=== PATIENT | male | born 1945 | race Caucasian/White ===

== ENCOUNTER 2017-03-08 09:16 | Outpatient (CLI) | payer MEDICARE ==
[2017-03-08 11:15] LABS: Anion Gap 11 mmol/L (10-20); BUN (Urea Nitrogen) 14 mg/dL (8.4-25.7); Calc. Creatinine Clearance 0 mL/min (70-130); Calcium 9.8 mg/dL (7.8-10.44); Carbon Dioxide 29 mmol/L (23-31); Chloride 101 mmol/L (98-107); Estimated GFR-MDRD 60; Glucose 295 mg/dL (80-115); Potassium 4.8 mmol/L (3.5-5.1); Sodium 136 mmol/L (136-145)
[2017-03-08 11:16] LABS: PTT 34.3 SEC (22.9-36.1); Prothrombin Time 13.5 SEC (12.0-14.7)
[2017-03-08 11:33] LABS: Hemoglobin 15.8 g/dL (14.0-18.0); Mean Corpuscular HGB CONC 34.8 g/dL (32.0-36.0); Mean Corpuscular Hemoglobin 32.4 pg (27.0-31.0); Platelet Count 112 thou/uL (130-400); RBC Distribution Width 12.3 % (11.5-14.5); Red Blood Cell (RBC) Count 4.87 mill/uL (4.70-6.10); White Blood Cell (WBC) Count 6.4 thou/uL (4.8-10.8)
== END 2017-03-08 09:17 | disposition home or self-care (01) ==
LOC: LABBT 09:16
PROVIDERS: ATTEND Urology
DX: Z01.812 Encounter for preprocedural laboratory examination (principal); N21.0 Calculus in bladder
CPT/HCPCS: 80048; 85027; 85610; 85730

== ENCOUNTER 2017-03-14 09:19 | Day surgery (SDC) | payer MEDICARE ==
[2017-03-08 09:58] VITALS: BMI 36.0
[2017-03-14] MEDS ORDERED: cefTRIAXone\\ROCEPHIN 2 GM in Sodium Chloride 0.9% 100 ML IVPB SCH (12:30)
[2017-03-14] MEDS ORDERED: CEFTRIAXONE 2GM/50 ML BAG 2 GM in Premix Bag 1 BAG IVPB SCH (12:45)
[2017-03-14] MEDS ORDERED: Fentanyl 100 MCG/2 ML VIAL ONE (12:53)
--- NOTE | 2017-03-14 14:53 | OP ---
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 PROCEDURE PERFORMED: Cysto, laser of strictures and stones, evacuation of stone and placement of Fol ey. PATH SENT: Stone. ESTIMATED BLOOD LOSS: 50-75 mL. DRAINS PLACED: 22-Macanese with 20 mL in the balloon. FINDINGS: He had no evidence of urethral stricture disease. In the prostatic urethra, it was quite narrowed, just proximal to the verumontanum from a contracture/scar that went across the anterior wal l. This was opened along the midline and opened up nicely. He had an elevated bladder neck and some contracture of the bladder neck that was released at the 6 o'clock position. He had 2 stones adhere nt to the wall of the prostatic urethra kind of more on the right side anteriorly above the large rig ht median lobe. He had right ureteral orifices; really cannot see the left ureteral orifices well. The bladder did not have any tumors, foreign bodies, or stone present. OPERATIVE TECHNIQUE: After obtaining written and verbal consent from the patient after receiving IV antibiotics, he was taken to the operating suite. He was placed in the supine position on the [facility] ent table. PlexiPulses were placed on his lower extremities and turned on. He was given a general a nesthetic, oral obturator intubation, and placed in the dorsal lithotomy position, and sterilely prep ped and draped. Cystoscopy was performed with a 22-Macanese sheath. This was well lubricated and pass ed under direct vision through the male urethra into the level of the membranous urethra with the aid of a 30-degree lens and video camera and monitor. The scope would not pass through the prostatic ur ethra, because of a scar that was present just proximal to the verumontanum. A 500 micro Holmium las er was brought in and used to incise this just at the 12 o'clock position. This then allowed the sco pe to easily go in and through the prostatic urethra. We did note that there was elevation of the bl adder neck, also with some bladder neck contracture and this was incised with the laser at the 6 o'cl ock position. Also, there were some stones noted on the right anterior prostatic urethra. These wer e laser knocked off and into the bladder. We elliked these off and sent off the largest of them for stone analysis. The bladder is then examined with a 30- and 70-degree lens without any other finding s noted. There was some bleeding from some of the sites, and we went ahead and switched out to a gyr us. A 24-Macanese resectoscope sheath was passed with a 30-degree lens and a visual obturator into the bladder. We then brought in the gyrus with the prostate loop and a 30-degree lens in an Moore re sectoscope and used this to cauterize the bleeding areas on the inside of the prostatic urethra. Onc e this was completed, Paredes catheter was easily inserted and 20 mL placed in the balloon. It was graff d irrigated. It was clear to light pink. It was hooked up to a leg bag on his right thigh and no tr action. He was awakened, extubated, and taken by stretcher to the recovery room.
== END 2017-03-14 18:00 | disposition home or self-care (01) ==
LOC: SDC 09:19
PROVIDERS: ATTEND Urology
PROC: 0TFD8ZZ Fragmentation in Urethra, Via Natural or Artificial Opening Endoscopic (ICD-10-PCS; principal; 2017-03-14)
PROC: 0TCD8ZZ Extirpation of Matter from Urethra, Via Natural or Artificial Opening Endoscopic (ICD-10-PCS; 2017-03-14)
PROC: 0T7C8DZ Dilation of Bladder Neck with Intraluminal Device, Via Natural or Artificial Opening Endoscopic (ICD-10-PCS; 2017-03-14)
PROC: 0TBC8ZZ Excision of Bladder Neck, Via Natural or Artificial Opening Endoscopic (ICD-10-PCS; 2017-03-14)
DX: N21.1 Calculus in urethra (principal); N32.0 Bladder-neck obstruction; E78.5 Hyperlipidemia, unspecified; I25.10 Atherosclerotic heart disease of native coronary artery without angina pectoris; I10 Essential (primary) hypertension; E11.9 Type 2 diabetes mellitus without complications; N40.0 Benign prostatic hyperplasia without lower urinary tract symptoms; F17.290 Nicotine dependence, other tobacco product, uncomplicated; F41.9 Anxiety disorder, unspecified; Z79.82 Long term (current) use of aspirin; Z79.899 Other long term (current) drug therapy; Z88.8 Allergy status to other drugs, medicaments and biological substances; Z85.820 Personal history of malignant melanoma of skin; Z95.818 Presence of other cardiac implants and grafts; Z97.0 Presence of artificial eye; Z96.652 Presence of left artificial knee joint; Z90.5 Acquired absence of kidney; Z90.49 Acquired absence of other specified parts of digestive tract; Z98.890 Other specified postprocedural states; Z85.89 Personal history of malignant neoplasm of other organs and systems
CPT/HCPCS: 82365; 88300; J0131; J0696; J3010; J7050

== ENCOUNTER 2018-04-07 10:55 | Outpatient (CLI) | payer MEDICARE ==
[2018-04-07] MEDS ORDERED: ISOVUE-370 76%-LOCM 1 ML ONE (12:33)
--- NOTE | 2018-04-07 13:08 | CT ---
CT OF THE ABDOMEN AND PELVIS WITH AND WITHOUT IV CONTRAST: DATE: 04/07/2018. PROVIDED CLINICAL HISTORY: Gross hematuria. FINDINGS: Comparison is made with a study dated 05/31/2016. The visualized lung bases are free of significant opacity. Postoperative changes of the left nephrectomy are redemonstrated without abnormality in the left quinn l fossa. The spleen again appears enlarged with a focal subcapsular fluid collection that appears si milar to the prior study inferiorly. The right and left adrenal glands appear unremarkable. There is nonspecific stranding about the right kidney, similar to the prior study. Subcentimeter par enchymal hypodensity involving the mid portion of the right kidney is stable in appearance. Somewhat complex cystic structure involving the posterior aspect of the right kidney at the superior pole díaz s not appear significantly changed with respect to the prior examination. There is no evidence for u rinary tract calculi or hydronephrosis. The delayed images demonstrate no evidence for filling defec t involving the right renal collecting system, right ureter, or urinary bladder. Asymmetric enlargem ent of the right aspects of the prostate gland with asymmetric mass effect upon the urinary bladder b ase appears similar to the prior examination. There is no bowel dilatation, inflammatory fat stranding, free fluid, or lymph node enlargement appar ent. Vascular calcifications are seen. Postoperative changes involving the rectosigmoid junction ar e again noted. The osseous structures demonstrate no concerning osteoblastic or osteolytic lesions. IMPRESSION: An etiology for the patient's hematuria is not evident on this examination. Stable CT with respect t o 05/31/2016. POS: [facility]
== END 2018-04-07 10:56 | disposition home or self-care (01) ==
LOC: BICCT 10:55
PROVIDERS: ATTEND Urology
DX: R31.0 Gross hematuria (principal)
CPT/HCPCS: 74178; 82565; Q9966

== ENCOUNTER 2018-04-21 08:52 | Outpatient (CLI) | payer MEDICARE ==
--- NOTE | 2018-04-21 10:25 | CT ---
TWO VIEWS SINUSES WITHOUT CONTRAST: Comparison: None. History: Sinusitis with cough and congestion. Technique: Multiple contiguous axial images were obtained in a CT of the sinuses without contrast. Co yina reformats were performed. FINDINGS: The frontal, maxillary, ethmoid, and sphenoid sinuses are well aerated without opacification or mucos al thickening. The density of the bones surrounding the sinuses are normal without significant sclero tic change to suggest chronic sinus disease. There is calcification of the right orbit from prior right orbital injury. The calcification in the r ight lobe secondary to right globe injury. The left globe is unremarkable. The left lobar soft tissue s are unremarkable. The visualized intracranial structures are unremarkable. The bilateral maxillary osteomeatal units are patent. Minimal nasal deviation to the right is seen. IMPRESSION: No significant sinus disease. POS: [facility]
--- NOTE | 2018-04-21 10:29 | RAD ---
THREE VIEWS SINUSES: History: Chronic sinusitis for three weeks with sinus pressure. FINDINGS: Three views of the sinuses shows complete aeration of the frontal, maxillary, ethmoid and sphenoid si nuses. The density of the bones surrounding the sinuses are normal without significant sclerotic chen ge. IMPRESSION: No evidence of sinus opacification. POS: [facility]
--- NOTE | 2018-04-21 10:44 | RAD ---
TWO VIEWS CHEST: Comparison: 10-22-13 History: Cough and shortness of breath. Congestion. Chronic sinusitis. FINDINGS: Two views of the chest shows normal sized cardiomediastinal silhouette. A calcified granuloma project s over the left mid-thorax. There is no evidence of consolidation or pleural effusion. IMPRESSION: No evidence of acute cardiopulmonary disease. POS: [facility]
== END 2018-04-21 08:53 | disposition home or self-care (01) ==
LOC: BICCT 08:52
PROVIDERS: ATTEND Specialist
DX: J20.8 Acute bronchitis due to other specified organisms (principal); J32.0 Chronic maxillary sinusitis
CPT/HCPCS: 70220; 71046

== ENCOUNTER 2018-07-26 11:48 | Outpatient (CLI) | payer MEDICARE ==
--- NOTE | 2018-07-26 15:30 | RAD ---
CERVICAL SPINE RADIOGRAPHS 4 VIEWS: Date: 07/26/18 PROVIDED CLINICAL HISTORY: Cervical radiculopathy. FINDINGS: Cervical alignment appears normal. Vertebral body heights appear preserved. Disc space narrowing and end plate degenerative changes are noted at C5-6 and C6-7. No prevertebral soft tissue swelling appar ent. Visualized lung apices appear clear. The lower cervical spine is not optimally evaluated due to patient body habitus. IMPRESSION: Cervical degenerative change. In the setting of cervical radiculopathy, MRI may be useful for further evaluation. POS: [facility]
== END 2018-07-26 11:49 | disposition home or self-care (01) ==
LOC: BICRAD 11:48
PROVIDERS: ATTEND Specialist
DX: M47.22 Other spondylosis with radiculopathy, cervical region (principal)
CPT/HCPCS: 72040

== ENCOUNTER 2019-12-03 13:40 | Outpatient (CLI) | payer MEDICARE ==
[~2019-12-03 13:40] MED LIST: Magnevist 469MG/ML 20 ML VIAL ONE
--- NOTE | 2019-12-03 15:00 | MRI ---
MRI BRAIN AND INTERNAL AUDITORY CANALS WITH AND WITHOUT CONTRAST: Date: 12/03/2019 HISTORY: 74-year-old male with tinnitus TECHNIQUE: Multiplanar, multisequence MRI, both whole brain images and thin slices through the IACs, pre and pos t IV injection of gadolinium-based contrast agent. FINDINGS: There is no obstructive hydrocephalus. There is no midline shift or any other evidence of mass effect . There is no extra-axial fluid collection. There are mild chronic ischemic white matter changes due to microvascular atherosclerosis. There is otherwise no major intra-axial signal abnormality, abn ormal enhancement, mass, recent hemorrhage, or restricted diffusion. There is no abnormal enhancement, mass, or morphologic abnormality, involving the cerebellopontine an gles, 7th-8th nerve complexes, internal auditory canals, cochleae, vestibules, vestibular aqueducts, or semicircular canals. No signs of dural venous sinus thrombosis. There are bilateral mastoid effusions. 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 IMPRESSION: 1) mild chronic ischemic white matter changes. 2) bilateral mastoid effusions. 3) right globe prosthesis.
== END 2019-12-03 13:41 | disposition home or self-care (01) ==
LOC: BICMRI 13:40
PROVIDERS: ATTEND Specialist
DX: H93.19 Tinnitus, unspecified ear (principal); G93.89 Other specified disorders of brain; G93.6 Cerebral edema; Z98.890 Other specified postprocedural states
CPT/HCPCS: 70553; 82565; A9579

== ENCOUNTER 2019-12-04 07:35 | Outpatient (CLI) | payer MEDICARE, OTHER ==
[2019-12-04 18:02] LABS: Hemoglobin 15.6 g/dL (14.0-18.0); Mean Corpuscular HGB CONC 33.3 g/dL (32.0-36.0); Mean Corpuscular Hemoglobin 31.8 pg (27.0-31.0); Mean Corpuscular Volume 95.5 fL (78.0-98.0); Mean Platelet Volume 11.8 fL (7.4-10.4); Platelet Count 118 thou/uL (130-400); RBC Distribution Width 13.1 % (11.5-14.5); White Blood Cell (WBC) Count 7.2 thou/uL (4.8-10.8)
[2019-12-04 18:05] LABS: INR-International Normal Ratio 0.9; PTT 32.6 sec (22.9-36.1); Prothrombin Time 12.5 sec (12.0-14.7)
[2019-12-04 18:29] LABS: Bacteria/HPF None Seen HPF (None Seen); Bilirubin Negative (Negative); Blood, Urine Negative (Negative); Clarity Clear (Clear); Glucose, Urine (Dipstick) Normal (Negative); Ketone, Urine Negative (Negative); Leukocyte Negative Leu/uL (Negative); Nitrite Negative (Negative); Protein, Urine (Dipstick) Negative (Neg-Trace); RBC/HPF 0-3 HPF (0-3); Specific Gravity, Urine 1.004 (1.002-1.036); Squamous Epithelial None Seen HPF (0-3); Urobilinogen Normal mg/dL (Less than 2); WBC/HPF 0-3 HPF (0-3); pH, Urine 6.5 (5.0-9.0)
[2019-12-04 18:51] LABS: Anion Gap 15 mmol/L (10-20); BUN (Urea Nitrogen) 14 mg/dL (8.4-25.7); Calc. Creatinine Clearance 0 mL/min (70-130); Calcium 9.5 mg/dL (7.8-10.44); Carbon Dioxide 25 mmol/L (23-31); Chloride 103 mmol/L (98-107); Estimated GFR-MDRD 66; Glucose 98 mg/dL (83-110); Potassium 4.6 mmol/L (3.5-5.1); Sodium 138 mmol/L (136-145)
--- NOTE | 2019-12-05 07:14 | EKG ---
Test Reason : Blood Pressure : / mmHG Vent. Rate : 090 BPM Atrial Rate : 090 BPM P-R Int : 186 ms QRS Dur : 088 ms QT Int : 366 ms P-R-T Axes : 068 064 036 degrees QTc Int : 447 ms Normal sinus rhythm Cannot rule out Anterior infarct , age undetermined Poor anterior R wave progression Abnormal ECG No previous ECGs available Confirmed by DR. Ronan OTT ([id number]) on 12/05/2019 7:14:29 AM Referred By: IKER Confirmed By:DR. Ronan OTT
[2019-12-05 11:55] LABS: SARS-CoV-2 MS2 Positive; SARS-CoV-2 N Gene Negative; SARS-CoV-2 S Gene Negative; SARS-CoV-2 by NAA Not Detected (NotDetected); SARS-CoV-2 orf1ab Negative
== END 2019-12-04 07:36 | disposition home or self-care (01) ==
LOC: LABBT 07:35
PROVIDERS: ATTEND Urology
DX: Z01.818 Encounter for other preprocedural examination (principal); Z20.828 Contact with and (suspected) exposure to other viral communicable diseases; C64.2 Malignant neoplasm of left kidney, except renal pelvis; N40.1 Benign prostatic hyperplasia with lower urinary tract symptoms; N52.1 Erectile dysfunction due to diseases classified elsewhere; R35.0 Frequency of micturition; E11.43 Type 2 diabetes mellitus with diabetic autonomic (poly)neuropathy; R31.0 Gross hematuria
CPT/HCPCS: 80048; 81001; 85027; 85610; 85730; 87086; 93005; U0003; 87635; 93010

== ENCOUNTER 2019-12-07 07:53 | Day surgery (SDC) | payer MEDICARE ==
[2019-12-05 12:46] VITALS: BMI 34.9
[2019-12-07] MEDS ORDERED: B & O ONE (10:14)
[2019-12-07] MEDS ORDERED: PROPOFOL 200 MG/20 ML VIAL ONE (10:45)
[2019-12-07] MEDS ORDERED: HYDROcodone/Acetaminophen 5/325 mg Tablet ONE (11:49)
--- NOTE | 2019-12-07 12:55 | OP ---
DATE OF PROCEDURE: 12/07/2019 SERVICE: Urology. PREOPERATIVE DIAGNOSIS: Benign prostatic hypertrophy with obstruction. POSTOPERATIVE DIAGNOSIS: Benign prostatic hypertrophy with obstruction. PROCEDURE PERFORMED: UroLift with 8 implants. INDICATIONS FOR PROCEDURE: Mr. Red is a 74-year-old white male with a history of TURP many years ago by Dr. Jacobs. He had recurrent urinary complaints, and on cystoscopy, he was found to have significant lateral regrowth of nodules along with synechiae of the prostate. He is now coming in for UroLift after discussion of options, risks and benefits, and he has agreed to proceed forward. DESCRIPTION OF PROCEDURE: After identification of armband and verification of consent, the patient was brought back to the operating room where he underwent total intravenous anesthesia. He was then placed in dorsal lithotomy position and prepped and draped in the usual sterile fashion. After appropriate time-out, a 21-[place]ankan rigid cystoscope with visual obturator was passed through the urethra into the prostate. The prostate synechia was identified at the distal aspect of the prostate, connecting the two lateral lobes. This was broken by gently applying upward pressure on the synechia until it ripped. This allowed for the prostate nodules to be opened up nicely laterally. The scope was then passed down into the bladder, which appeared normal, consistent with outpatient cystoscopy. The visual obturator was then switched out for the UroLift implant device. The initial UroLift was placed on the dominant nodule in the patient's right base of the prostate. Lateral compression was achieved on to the middle of the nodule until it was well out of the way. The safety was released and the blue trigger fired to deploy the Nitinol needle. Tension was set along with the capsular tab with the kebede trigger. The UroLift was then advanced forward until the white line could be seen in the keyhole and the urethral end piece deployed using the blue back trigger. This resulted in nice compression of the dominant nodule at the right base of the prostate. Additional implant was placed at the left base of the prostate at the right and left apex of the prostate, a little bit more toward the midline. Additional implants were put on the right and left side of the mid aspect of the prostate, which were still bulging somewhat. At this point, there still appeared to be obstruction on the distal aspect of the prostate. After evaluation, we elected to put 2 more distal implants in more distal to where the original, thought to be distal implants were, which was actually more towards the mid aspect of the prostate. The patient does have a very long prostatic urethra, having a 74 mL prostate. Two additional implants were placed at the left and right apex, which resulted in complete opening of the prostatic channel. There was a moderate amount of bleeding seen at the end of the case due to the disruption of the synechiae between the 2 prostate lobes, but there did appear to be a nice anterior channel from the verumontanum all the way to the bladder neck. I did feel the patient has a high probability of being able to void better after this procedure. As such, the bladder was left full and the cystoscope removed. An 18-Sri [place]ankan Paredes catheter was placed with ease into the bladder with 20 mL of sterile water placed into the balloon. This was then affixed with a StatLock. The patient had a B and O suppository placed in the patient's rectum. He was taken out of positioning, awakened, taken back to Day Stay for recovery in stable condition. COMPLICATIONS: None. ESTIMATED BLOOD LOSS: Minimal. RETAINED TUBES AND DRAINS: An 18-S[place]ankan Paredes catheter with 20 mL of sterile water in the balloon. IMPLANTS USED: Eight. SPECIMENS: None. DISPOSITION: The patient will be monitored in PACU. He did have a moderate amount of bleeding. There is a good chance we will send him home with a catheter, but if the bleeding resolves and his urine looks relatively clear, he may be able to be discharged without a catheter. We will make this decision in Day Stay and then he will follow up with me on an outpatient basis. Job ID: [id number]
[2019-12-07] MEDS ORDERED: Labetalol HCl 100 MG/20 ML VIAL ONE (13:28)
[2019-12-07] MEDS ORDERED: Ramipril 5 MG CAP PO SCH (14:15)
== END 2019-12-07 15:23 | disposition home or self-care (01) ==
LOC: SDC 07:53
PROVIDERS: ATTEND Urology
PROC: 0T7D8DZ Dilation of Urethra with Intraluminal Device, Via Natural or Artificial Opening Endoscopic (ICD-10-PCS; principal; 2019-12-07)
DX: N40.1 Benign prostatic hyperplasia with lower urinary tract symptoms (principal); N13.8 Other obstructive and reflux uropathy; R35.0 Frequency of micturition; R35.1 Nocturia; R39.15 Urgency of urination; E11.43 Type 2 diabetes mellitus with diabetic autonomic (poly)neuropathy; N52.1 Erectile dysfunction due to diseases classified elsewhere; R31.0 Gross hematuria; E78.5 Hyperlipidemia, unspecified; I10 Essential (primary) hypertension; I25.10 Atherosclerotic heart disease of native coronary artery without angina pectoris; F41.9 Anxiety disorder, unspecified; M19.90 Unspecified osteoarthritis, unspecified site; M10.9 Gout, unspecified; F17.290 Nicotine dependence, other tobacco product, uncomplicated; Z79.82 Long term (current) use of aspirin; Z79.84 Long term (current) use of oral hypoglycemic drugs; Z79.899 Other long term (current) drug therapy; Z88.8 Allergy status to other drugs, medicaments and biological substances; Z90.5 Acquired absence of kidney; Z95.5 Presence of coronary angioplasty implant and graft; Z90.49 Acquired absence of other specified parts of digestive tract
CPT/HCPCS: C1889; C9740; J2704

== ENCOUNTER 2020-05-08 15:07 | Outpatient (CLI) | payer MEDICARE | END 2020-05-08 15:08 | disposition home or self-care (01) | LOC: CTENTCT 15:07 | PROVIDERS: ATTEND Otolaryngology Plastic Surgery within the Head & Neck | DX: J32.9 Chronic sinusitis, unspecified (principal) | CPT/HCPCS: 70486 ==

== ENCOUNTER 2021-03-09 15:49 | Outpatient (CLI) | payer MEDICARE | END 2021-03-09 15:50 | disposition home or self-care (01) | LOC: BICRAD 15:49 | PROVIDERS: ATTEND Specialist | DX: M47.22 Other spondylosis with radiculopathy, cervical region (principal); M79.602 Pain in left arm | CPT/HCPCS: 72040 ==

== ENCOUNTER 2022-08-10 13:52 | Outpatient (CLI) | payer MEDICARE | END 2022-08-10 13:53 | disposition home or self-care (01) | LOC: BICRAD 13:52 | PROVIDERS: ATTEND Specialist | DX: M54.2 Cervicalgia (principal); M47.812 Spondylosis without myelopathy or radiculopathy, cervical region | CPT/HCPCS: 72040 ==